=== PATIENT | male | born 1980 | race Caucasian/White ===

== ENCOUNTER 2017-04-28 16:00 | Inpatient (IN) | payer OTHER ==
[~2017-04-28] VITALS: Ht 182.9 cm; Wt 63.0 kg
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
--- NOTE | ~2017-04-28 | HP ---
Unit #: [id number] #: [id number] Patient: ROGELIO RAMIREZ [id number] [place] [address] [id number] I MR#: [id number] NAME: ROGELIO RAMIREZ ROOM: P204 Age: 36 Sex: M Admission Date: 04/28/2017 : 1980 Attending Physician: August Reid M.D. Admitting Physician: August Reid M.D. Primary Care Physician: Generic Doctor Not In System HISTORY AND PHYSICAL HISTORY OF PRESENT ILLNESS Rogelio is a 36-year-old male admitted on 04/28/[address] [place] [address] for detox from heroin and methamphetamine. PAST MEDICAL HISTORY None. PAST SURGICAL HISTORY None. SOCIAL HISTORY Smokes one pack of cigarettes. No alcohol use. does report daily use of heroin and methamphetamine. He is currently single and living with his grandmother. FAMILY HISTORY Noncontributory. REVIEW OF SYSTEMS CONSTITUTIONAL: No fever or chills. HEENT: Denies any sore throat, ear pain or runny nose. CARDIOVASCULAR: Denies chest pain, irregular heart rhythm or palpitations. CHEST: Denies shortness of breath or cough. No hemoptysis. GASTROINTESTINAL: Denies nausea, vomiting, diarrhea or chronic constipation. ENDOCRINE: Denies history of increased thirst or urination. No recent significant weight loss or gain. GENITOURINARY: Denies dysuria, frequency, or hematuria. SKIN: Denies any rashes. HEMATOLOGIC: Denies history of increased bleeding or bruising. MUSCULOSKELETAL: Denies any hot, swollen joints. No generalized muscle pain. NEUROLOGIC: Denies problems with vision or speech. No frequent, severe headaches. No numbness, tingling or weakness in any extremities. Denies loss of bladder or bowel control. CURRENT MEDICATIONS please see medication reconciliation list in chart. ALLERGIES No known drug allergies. Unit #: [id number] #: [id number] Patient: ROGELIO RAMIREZ PHYSICAL EXAMINATION GENERAL: Alert, oriented, in no acute distress. VITAL SIGNS: Blood pressure 97/63, heart rate 64, temperature 98.4. HEIGHT: 8 foot 0 inches. WEIGHT: 139 pounds. SKIN: Warm and dry without rash or lesion. HEENT: Normocephalic. TMs not viewed. Oral and nasal passages clear. Conjunctivae clear. PERRLA. EOMs intact. NECK: Supple without lymphadenopathy or thyromegaly. HEART: Regular rate and rhythm without murmur. LUNGS: Clear. ABDOMEN: Soft, nontender, without masses or hepatosplenomegaly. : Not done. EXTREMITIES: No evidence of cyanosis, clubbing or edema. Moves all without focal deficit. NEUROLOGICAL: Grossly within normal limits. Cranial Nerves: II: Visual fuller are intact. III, IV AND : Extraocular movements are intact. Pupils are equal, round and reactive to light. V: Facial sensation is grossly normal. VII: Facial movements and expression are normal. VIII: Auditory acuity grossly intact. IX, X: Uvula is midline. Phonation is normal. XI: Patient shrugs shoulders and turns head normally. XII: Tongue protrudes in the midline. Sensory and Motor Function: Sensory and motor sensation is grossly normal. Motor: moves all extremities well. Coordination: Gait is normal. Deep Tendon Reflexes: Intact. IMPRESSION Psychiatric admission. RECOMMENDATIONS Psychiatric, per psychiatrist. MEDICAL: I see no contraindications to participating in facility's activities. MEDICAL PROGNOSIS Good. MEDICAL CONDITION Stable. Dictated by... Zo Hodges/javier TD: 04/30/2017 00:09 JOB #: [id number] Unit #: [id number] #: [id number] Patient: ROGELIO RAMIREZ HISTORY AND PHYSICAL Page 1 of 1 X DIANE NARAYAN APRN X HISTORY AND PHYSICAL
--- NOTE | ~2017-04-28 | PA ---
Unit #: [id number] #: [id number] Patient: ROSE RAMIREZ [id number] [facility] [address] [place] [address] [id number] MR#: [id number] NAME: ROSE RAMIREZ ROOM: P204 Age: 36 Sex: M Admission Date: 04/28/2017 : 1980 Date of Assessment: 04/29/2017 Attending Physician: August Reid M.D. Admitting Physician: August Reid M.D. Primary Care Physician: Generic Doctor Not In System PSYCHIATRIC ASSESSMENT IDENTIFYING INFORMATION The patient is a 36-year-old white male admitted to the [address] [place] [address] with a history of methamphetamine and heroin abuse. CHIEF COMPLAINT Need to detox. INFORMANT(S) The patient, reliability is good. HISTORY OF PRESENT ILLNESS The patient is a 36-year-old white male last admitted to this facility approximately two years ago. He had maintained sobriety but has recently relapsed and reports that he is fearful that he will return to using a needle to inject heroin and methamphetamine. The patient reports that he is currently living with his grandmother and is not employed. He denies current suicidal or homicidal ideation or any psychotic symptoms. PAST PSYCHIATRIC HISTORY As noted previously. The patient was treated at this facility approximately two years ago. He does report that he has been prescribed "Lexapro and gabapentin" the past. MEDICATIONS None at this time. ALLERGIES None reported. FAMILY HISTORY Not contributory SOCIAL HISTORY The patient lives with his grandmother. He is not presently employed. He reports abuse of methamphetamine and heroin as noted previously. MENTAL STATUS EXAMINATION At this time reveals the patient to be a well-developed, well-nourished white male, appearing his stated age. He appears to be in moderate physical distress related to opioid withdrawal. He is awake, alert, and oriented in all spheres. His mood is mildly dysphoric. His affect constricted. Speech is generally relevant and coherent. There are no gross deficits in memory or cognition noted. Intelligence is judged to be Unit #: [id number] #: [id number] Patient: ROSE RAMIREZ in the average range based on fund of knowledge. The patient is cooperative throughout the interview. He is currently denying suicidal or homicidal ideation or psychotic features. Judgment and insight appear to be intact. ASSETS AND LIABILITIES ASSETS: Motivation for change. LIABILIRITIES: Lack of resources. ADMITTING DIAGNOSES Methamphetamine use disorder. Opioid use disorder. Mood disorder unspecified. PSYCHIATRIC PLAN/TREATMENT GOALS The patient remains hospitalized for safety and stabilization. Lexapro will be reinitiated at a dose of 10 mg daily and the patient has been placed on a routine detoxification protocol for opioids. He is expressing interest in residential chemical dependence treatment and I will ask a social media coordinator to see him regarding that. ESTIMATED LENGTH OF STAY Three to four days. Dictated by... August Reid M.D. PAMELA/javier TD: 04/29/2017 21:47 JOB #: [id number] PSYCHIATRIC ASSESSMENT Page 1 of 1 X August Reid MD X PSYCHIATRIC ASSESSMENT
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
[~2017-04-28 16:00] MED LIST: IBUPROFEN800 MG PO; LORTAB 5/500 TA1 TA2 PO; NORCO 5/325 TAB1 TAB PO
[2017-04-29 09:31] LABS: BASOPHIL% 0.1 % (0-2.5); EOSINOPHIL% 0.1 % (0.0-7.0); HEMOGLOBIN 13.5 gm/dL (13.0-16.0); LYMPHOCYTE# 2.4 X10e3 (1.0-3.5); LYMPHOCYTE% 39.7 % (17.0-45.0); MEAN CELL VOLUME 86.8 FL (83-96); MEAN CORPUSCULAR HEMOGLOBIN 29.3 PG (28-34); MEAN CORPUSCULAR HGB CONC 33.7 g/dL (30-36); MEAN PLATELET VOLUME 8.6 FL (6.5-11.5); MONOCYTE# 0.4 X10e3 (0-1.0); MONOCYTE% 7.1 % (3.0-12.0); NEUTROPHIL# 3.2 X10e3 (1.5-7.1); PLATELET COUNT 189 X10e3 (140-420); RED BLOOD COUNT 4.61 X10e (3.90-5.60); RED CELL DISTRIBUTION WIDTH 13.4 % (11.0-15.5)
[2017-04-29 09:38] LABS: DIFF IND NO
[2017-04-29 09:43] LABS: URINE APPEARANCE CLEAR; URINE BILIRUBIN NEG (NEG); URINE BLOOD NEG (NEG); URINE COLOR YELLOW; URINE GLUCOSE NEG (NEG); URINE KETONE NEG (NEG); URINE LEUKOCYTE ESTERASE NEG (NEG); URINE NITRATE NEG (NEG); URINE PROTEIN NEG (NEG); URINE SPECIFIC GRAVITY 1.018 (1.003-1.035)
[2017-04-29 09:44] LABS: ALBUMIN SERUM 4.1 g/dL (3.5-5.0); BILIRUBIN,TOTAL 0.5 mg/dL (0.2-2.0); GLOM FILT RATE Estimated 97.8 mL/min (>60); POTASSIUM 3.7 mmol/L (3.5-5.1); PROTEIN TOTAL SERUM 6.2 g/dL (6.0-8.3)
[2017-04-29 10:18] LABS: AMPHETAMINE NEG (NEG); BARBITURATES NEG (NEG); BENZODIAZEPINES NEG (NEG); COCAINE NEG (NEG); MARIJUANA NEG (NEG); OPIATES NEG (NEG); TRICYCLIC ANTIDEPRESSANTS NEG (NEG); U METHADONE NEG (NEG)
[2017-05-01 15:16] LABS: HA AB IGM (HEPPAN) Nonreactive (()); HB CORE AB IGM (HEPPAN) Nonreactive (Nonreactive); HB S AG (HEPPAN) Nonreactive (Nonreactive); HEP C AB (HEPPAN) Nonreactive (Nonreactive); HEP C AB SIGNAL TO CUTOFF 0.02 ratio (<1.00)
== END 2017-05-02 14:53 | disposition home or self-care (01) | DRG 897 ==
LOC: P2S 18:13
PROVIDERS: Specialist
PROC: HZ2ZZZZ Detoxification Services for Substance Abuse Treatment (ICD-10-PCS; principal; 2017-04-28)
DX: F11.10 Opioid abuse, uncomplicated (principal); F39 Unspecified mood [affective] disorder; F15.10 Other stimulant abuse, uncomplicated; F17.210 Nicotine dependence, cigarettes, uncomplicated
CPT/HCPCS: 80053; 80074; 80307; 81003; 85025; 87806

== ENCOUNTER 2017-05-01 14:26 | Emergency (ER) | payer OTHER ==
[~2017-05-01] VITALS: Ht 182.9 cm; Wt 63.0 kg
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
== END 2017-05-01 16:55 ==
LOC: CED 14:26
DX: S06.0X9A Concussion with loss of consciousness of unspecified duration, initial encounter (principal); F17.210 Nicotine dependence, cigarettes, uncomplicated; Y08.89XA Assault by other specified means, initial encounter; Y92.89 Other specified places as the place of occurrence of the external cause
CPT/HCPCS: 70450; 72125; 99284